=== PATIENT | female | born 1955 | race Two or more races ===

== ENCOUNTER → 2020-10-09 | Outpatient (CLI) | payer MEDICARE, BC | END | disposition home or self-care (01) | LOC: CFH 09:55 | PROVIDERS: ATTEND Physician Assistant | DX: M50.323 Other cervical disc degeneration at C6-C7 level (principal); M48.02 Spinal stenosis, cervical region; M25.78 Osteophyte, vertebrae | CPT/HCPCS: 72040; 72125; 72141 ==